=== PATIENT | male | born 1995 | race Caucasian/White ===

== ENCOUNTER 2019-07-31 20:21 | Emergency (ER) | payer OTHER ==
[~2019-07-31] VITALS: Ht 185.4 cm; Wt 122.5 kg
[2019-07-31 20:25] VITALS: BP_SYST 166
--- NOTE | 2019-07-31 20:25 | NUR ---
Patient triaged and placed in waiting room. VSS and patient appears in no acute distress at this time. Accompanied by fam member, awaiting available bed, and MD notified of need for MSE.
--- NOTE | 2019-07-31 20:37 | NUR ---
ER .DR MULLEN at TRIAGE examining patient.
--- NOTE | 2019-08-01 00:51 | NUR ---
Placed in room 6 . Placed on quality assurance monitor final, blood pressure machine and pulse oximeter. To gown for exam. Side rails up. Report given to Mike VASQUEZ.
--- NOTE | 2019-08-01 01:15 | NUR ---
AWAKE, ALERT. PT STATES THAT HE HAD PALPITATIONS OFF AND ON FOR THE PAST MONTH. HE HAS HAD RAPID HEART RATE ALL DAY WITH SHORTNESS OF BED. FATHER SITTED BESIDE PT.
--- NOTE | 2019-08-01 02:00 | NUR ---
RESTING QUIETLY. NO DISTRESS NOTED.
[2019-08-01 02:52] VITALS: BP_SYST 161
--- NOTE | 2019-08-01 02:52 | NUR ---
Patient given written and verbal discharge instructions and verbalizes understanding. ER DR SEBAS BRUCE discussed with patient the results and treatment provided. Patient in stable condition. ID arm band removed. Patient educated on pain management and to follow up with PMD. Pain Scale . Opportunity for questions provided and answered. Medication side effect fact sheet provided.
== END 2019-08-01 02:52 | disposition home or self-care (01) ==
LOC: SED 20:21
DX: R00.2 Palpitations (principal); I10 Essential (primary) hypertension
CPT/HCPCS: 93005; 99283